=== PATIENT | male | born 1970 | race Caucasian/White ===

== ENCOUNTER → 2016-07-02 | Outpatient (CLI) | payer BC ==
--- NOTE | 2016-07-02 21:25 | DI ---
XR C-SPINE COMPLETE MIN 4VW,07/02/2016 1:27 PM: Clinical History: Neck pain. Previous Exam: None at this facility. Findings: AP, lateral, flexion and extension views of the cervical spine are obtained, and demonstrate anatomic alignment without fractures. Vertebral body height is preserved. There is mild loss of intervertebra l disc height at the C5/6 level. Prevertebral soft tissues are unremarkable. The lung apices are clear. Impression: Degenerative disc disease at C5/6.
== END ==
LOC: ORTHO 13:57
PROVIDERS: ATTEND Physician Assistant
DX: M54.2 Cervicalgia (principal); M47.22 Other spondylosis with radiculopathy, cervical region; F17.210 Nicotine dependence, cigarettes, uncomplicated
CPT/HCPCS: 72050